=== PATIENT | female | born 1955 ===

== ENCOUNTER 2020-04-12 05:05 | Inpatient (IN) | payer OTHER ==
[~2020-04-12] VITALS: Ht 167.6 cm; Wt 96.6 kg
[~2020-04-12 05:05] MED LIST: CALCIUM + D SO1 EACH PO; CHILDREN'S ASPI81 MG PO; CORGARD20 M1 PO; HYDROCHLOROTHIA25 MG PO; OMEPRAZOL PO; SIMVASTA PO
[2020-04-12] MEDS ORDERED: PERCOCET 5-3251 EACH PO (13:11)
[2020-04-12] MEDS ORDERED: DIAZEPAM5 MG PO (13:11)
[2020-04-12] MEDS ORDERED: COLACE100 MG PO (13:11)
== END 2020-04-13 12:07 | disposition home or self-care (01) | DRG 473 ==
LOC: CIR.AMB 05:05 → EDSTATUS 10:45 → CIR.AMB 10:45 → SURH 10:45 → CIR.AMB 13:30 → SURH 14:01 → O/R 14:01 → SURH 14:08
PROVIDERS: ADMIT Orthopaedic Surgery Orthopaedic Surgery of the Spine; ATTEND Orthopaedic Surgery Orthopaedic Surgery of the Spine
PROC: 0RG2070 Fusion of 2 or more Cervical Vertebral Joints with Autologous Tissue Substitute, Anterior Approach, Anterior Column, Open Approach (ICD-10-PCS; 2020-04-12)
PROC: XRG20F3 Fusion of 2 or more Cervical Vertebral Joints using Radiolucent Porous Interbody Fusion Device, Open Approach, New Technology Group 3 (ICD-10-PCS; 2020-04-12)
PROC: 07DS3ZZ Extraction of Vertebral Bone Marrow, Percutaneous Approach (ICD-10-PCS; 2020-04-12)
PROC: 0RT30ZZ Resection of Cervical Vertebral Disc, Open Approach (ICD-10-PCS; principal; 2020-04-12 13:30)
DX: M50.022 Cervical disc disorder at C5-C6 level with myelopathy (principal); M48.02 Spinal stenosis, cervical region